=== PATIENT | female | born 1965 | race Caucasian/White ===

== ENCOUNTER 2017-05-16 11:25 | Emergency (ER) | payer OTHER ==
[~2017-05-16] VITALS: Ht 162.6 cm; Wt 74.0 kg
[~2017-05-16 11:25] MED LIST: OMEP20CA9 PO
[2017-05-16 11:26] VITALS: Ht 162.6 cm; Wt 74.0 kg
--- NOTE | 2017-05-16 12:25 | ERD ---
ER Documentation Chief Complaint Date/Time DATE: 05/16/17 TIME: 12:23 Chief Complaint SENT BY PMD FOR CHEST X RAY AND HEP B VACCINATION HPI 50-year-old female otherwise healthy was referred to the emergency department for hepatitis B vaccination. 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 She went to the clinic this morning but these were told that they did not have the vaccination. Despite the triage nurses note the patient at this time explicitly states that she does not need a chest x-ray that was already done prior to today. She states that she is originally from [facility] and to get a series of vaccinations for hepatitis as a child. She does not have current immunization records with her. She denies any right upper quadrant pain. Denies fevers, chills. ROS All systems reviewed and are negative except as per history of present illness. Medications Home Meds Active Scripts Omeprazole* (Prilosec*) 20 Mg Capsule.dr, 20 MG PO DAILY for 30 Days, CAP Prov:SENG GIPSON MD 08/05/15 Allergies Allergies: Coded Allergies: No Known Allergy (Unverified , 08/05/15) PMhx/Soc Hx Alcohol Use: No Hx Substance Use: No Hx Tobacco Use: No Physical Exam Vitals Vital Signs Date Time Temp Pulse Resp B/P Pulse Ox O2 Delivery O2 Flow Rate FiO2 05/16/17 11:26 98.2 72 16 132/70 98 Physical Exam General: Well-developed, well-nourished. The patient appears in no acute distress. HEENT: Head is normocephalic, atraumatic. No scleral icterus. Pupils are equal , round, and reactive. Neck: Supple. Nontender. Lungs: Clear to auscultation. Normal air movement. Heart: Regular rate and rhythm. S1 and S2 are normal. No murmurs, gallops, or rubs. Abdomen: Soft, nontender, nondistended. Bowel sounds are normoactive. Extremities: No clubbing or cyanosis. Normal pulses. Moving extremities x 4. No weakness. Neurologic: Alert and oriented 3. No focal deficits. Skin: Normal turgor. No rash or lesions. No jaundice Procedures/MDM ER course: Patient was offered a hepatitis titer, she was advised that it may take several days and if she needs to get the vaccination series done as soon as possible that she can follow-up with her primary care doctor. She states that she would like to opt out of doing the titers and would prefer to follow- up outpatient in the clinic. Medical decision making this 51-year-old female presents for hepatitis vaccination, she states that she did receive a series as a child years ago. His titer was offered however the patient does need this vaccination to be done promptly so at this time I will be giving her a list of clinics for follow-up. She does not show any signs of active hepatitis, she is stable for discharge. Departure Diagnosis: Primary Impression: Encounter for laboratory test Condition: Good Patient Instructions: Normal Exam, (Child) (Adult) Referrals: REGGIE GARCÍA MD [facility] YOU HAVE RECEIVED A MEDICAL SCREENING EXAM AND THE RESULTS INDICATE THAT YOU DO NOT HAVE A CONDITION THAT REQUIRES URGENT TREATMENT IN THE EMERGENCY DEPARTMENT. FURTHER EVALUATION AND TREATMENT OF YOUR CONDITION CAN WAIT UNTIL YOU ARE SEEN IN YOUR DOCTORS OFFICE WITHIN THE NEXT 1-2 DAYS. IT IS YOUR RESPONSIBILITY TO MAKE AN APPOINTMENT FOR FOLOW-UP CARE. IF YOU HAVE A PRIMARY DOCTOR --you should call your primary doctor and schedule an appointment IF YOU DO NOT HAVE A PRIMARY DOCTOR YOU CAN CALL OUR PHYSICIAN REFERRAL HOTLINE AT IF YOU CAN NOT AFFORD TO SEE A PHYSICIAN YOU CAN CHOSE FROM THE FOLLOWING [facility] [address] [facility]. [facility] [address] [facility] [facility] [address] [facility] [facility] [address] [facility] [facility] [address] [facility]. [facility]. [address] [facility]. [facility] YOU HAVE RECEIVED A MEDICAL SCREENING EXAM AND THE RESULTS INDICATE THAT YOU DO NOT HAVE A CONDITION THAT REQUIRES URGENT TREATMENT IN THE EMERGENCY DEPARTMENT. FURTHER EVALUATION AND TREATMENT OF YOUR CONDITION CAN WAIT UNTIL YOU ARE SEEN IN YOUR DOCTORS OFFICE WITHIN THE NEXT 1-2 DAYS. IT IS YOUR RESPONSIBILITY TO MAKE AN APPOINTMENT FOR FOLOW-UP CARE. IF YOU HAVE A PRIMARY DOCTOR --you should call your primary doctor and schedule and appointment IF YOU DO NOT HAVE A PRIMARY DOCTOR YOU CAN CALL OUR PHYSICIAN REFERRAL HOTLINE AT . IF YOU CAN NOT AFFORD TO SEE A PHYSICIAN YOU CAN CHOSE FROM THE FOLLOWING [facility] INSTITUTIONS: [facility] [address] [place] [address] [facility] [address] [place] [address] [facility] + [facility] [address] [place] [address] [facility] URGENT CARE/SPECIALTIES Additional Instructions: Llame al doctor MAANA y kelle chyna KAITLYNN PARA DENTRO DE 1-2 JONES.Dgale a la secretaria que nosotros le instruimos hacer esta kaitlynn.Avise o llame si silva condicin se empeora antes de la kaitlynn. Regresa aqui si peor o no mejor. SUNSHINE GONZALEZ PA-C May 16, 2017 12:25
== END 2017-05-16 12:56 | disposition home or self-care (01) ==
LOC: FTE 11:25
DX: Z00.00 Encounter for general adult medical examination without abnormal findings (principal)
CPT/HCPCS: 99282